=== PATIENT | male | born 1975 | race Caucasian/White ===

== ENCOUNTER 2023-03-18 14:15 | Emergency (ER) | payer SELFPAY ==
[2023-03-18 14:48] VITALS: BP 161/114; PULSE 94
[2023-03-18] MEDS: Lidocaine 1% 5 ML VIAL INJECT ONE (15:01)
[2023-03-18] MEDS: Bacitracin/Neomycin/Polymyxin B Oint 0.9 GM U/D Packet TOP ONE (15:09)
== END 2023-03-18 15:20 | disposition home or self-care (01) ==
LOC: CC.ED 14:15
DX: S61.215A Laceration without foreign body of left ring finger without damage to nail, initial encounter (principal); F17.210 Nicotine dependence, cigarettes, uncomplicated; W25.XXXA Contact with sharp glass, initial encounter
CPT/HCPCS: 12001; 73140-F3; 99283; A9270-GY; J3490

== ENCOUNTER 2024-03-24 10:03 | Emergency (ER) | payer BC ==
[2024-03-24] MEDS: Aspirin 81 MG Tab.Chew PO ONE (10:03)
[2024-03-24] MEDS ORDERED: Nitroglycerin 0.4 MG Tab.SL SL PRN (10:04)
[2024-03-24] MEDS: Nitroglycerin Lingual Spray 4.9 GM Canister TRLING PRN (10:07)
[2024-03-24] MEDS: Morphine 2 MG/ML SYRINGE IVPUSH ONE (10:23)
[2024-03-24 10:33] LABS: INR 0.98 (0.92-1.18); PROTHROMBIN TIME 10.3 SEC (9.3-11.3); PTT,PARTIAL THROMBOPLSTIN TIME 26.1 SEC (20.0-30.0)
[2024-03-24] MEDS: Morphine 2 MG/ML SYRINGE ONE (10:35)
[2024-03-24] MEDS: Heparin Sodium 5,000 Units/ML Vial IVPUSH ONE (10:43)
[2024-03-24] MEDS: Clopidogrel 75 MG Tab PO ONE (10:48)
[2024-03-24] MEDS: Heparin Sodium/0.45% NaCl 500 ML IV SCH (10:58)
[2024-03-24] MEDS ORDERED: Naloxone 2 MG/2 ML Syringe IVPUSH PRN (12:05)
[2024-03-24] MEDS: Nitroglycerin/D5W 25 MG/250 ML BOTTLE IV SCH (12:13)
[2024-03-24] MEDS: Morphine 2 MG/ML SYRINGE IVPUSH PRN (13:38)
== END 2024-03-24 12:20 ==
LOC: CC.ED 10:03
DX: I21.4 Non-ST elevation (NSTEMI) myocardial infarction (principal); F17.200 Nicotine dependence, unspecified, uncomplicated
CPT/HCPCS: 36415; 85610; 85730; 96365; 96366; 96368; 96375; 96376; 99285-25; A9270-GY; J1644; J2270; J2305

== ENCOUNTER 2024-05-21 17:28 | Emergency (ER) | payer BC ==
[2024-05-21 17:54] LABS: BASOPHILS ABSOLUTE AUTO 0.04 10^3/uL (0.00-0.50); BASOPHILS PERCENT AUTO 0.8 % (0-1); HEMOGLOBIN 15.1 g/dL (14.0-18.0); IMMATURE GRAN ABSOLUTE AUTO 0.01 10^3/uL (0.00-0.49); IMMATURE GRAN PERCENT AUTO 0.2 % (0.0-4.9); LYMPHOCYTES PERCENT AUTO 35.6 % (24-44); MEAN CORPUSCULAR HEMOGLOBIN 29.8 pg (27.0-32.0); MEAN CORPUSCULAR HGB CONC 34.3 g/dL (32.0-36.0); MONOCYTES PERCENT AUTO 7.9 % (0-10); NEUTROPHILS PERCENT AUTO 53.5 % (41-71); PLATELET COUNT,PLT 252 10^3/uL (150-400); RED BLOOD CELL COUNT 5.06 x10^6/uL (4.50-6.00); WHITE BLOOD CELL COUNT,WBC 5.1 10^3/uL (4.0-11.0)
[2024-05-21 18:01] LABS: INR 0.97 (0.92-1.18); PROTHROMBIN TIME 10.2 SEC (9.3-11.3); PTT,PARTIAL THROMBOPLSTIN TIME 25.6 SEC (20.0-30.0)
[2024-05-21 18:07] LABS: ALANINE AMINOTRANSFERASE,ALT 22 U/L (12-78); ALBUMIN 3.9 g/dL (3.4-5.0); ALKALINE PHOSPHATASE 88 U/L (46-116); ASPARTATE AMNIOTRANSFERASE,AST 13 U/L (15-37); BILIRUBIN TOTAL 0.2 mg/dL (0.0-1.0); BLOOD UREA NITROGEN,BUN 11 mg/dL (7-18); CALCIUM 9.3 mg/dL (8.4-10.1); CARBON DIOXIDE,CO2 27 mmol/L (21-32); CHLORIDE,CL 104 mEq/L (98-106); CREATININE 0.9 mg/dL (0.7-1.3); ESTIMATED GFR 107 mL/min (>=60); GLUCOSE RANDOM 160 mg/dL (75-99); LIPASE 23 U/L (16-77); MAGNESIUM 1.8 mg/dL (1.8-2.4); POTASSIUM,K 3.6 mEq/L (3.5-5.0); PROTEIN TOTAL,TP 6.9 g/dL (6.4-8.2); SODIUM,NA 139 mEq/L (136-145)
[2024-05-21 18:48] LABS: APPEARANCE,URINE CLEAR (CLEAR); BILIRUBIN,URINE NEGATIVE (NEGATIVE); COLOR,URINE YELLOW (YELLOW); GLUCOSE,URINE NEGATIVE (NEGATIVE); KETONES,URINE NEGATIVE (NEGATIVE); LEUKOCYTE ESTERASE,URINE NEGATIVE (NEGATIVE); NITRITE,URINE NEGATIVE (NEGATIVE); OCCULT BLOOD,URINE NEGATIVE (NEGATIVE); PROTEIN,URINE NEGATIVE (NEGATIVE); UROBILINOGEN,URINE 0.2 EU/dL (0.2-1.0)
== END 2024-05-21 21:55 | disposition home or self-care (01) ==
LOC: CC.ED 17:28
DX: R07.9 Chest pain, unspecified (principal); I10 Essential (primary) hypertension; I25.2 Old myocardial infarction; F17.210 Nicotine dependence, cigarettes, uncomplicated; Z79.82 Long term (current) use of aspirin; Z79.899 Other long term (current) drug therapy
CPT/HCPCS: 36415; 71046; 80053; 81003; 83690; 83735; 84484; 85025; 85610; 85730; 93005; 93010; 99284; 99285

== ENCOUNTER 2024-09-19 05:56 | Emergency (ER) | payer BC ==
[2024-09-19 06:29] LABS: BASOPHILS ABSOLUTE AUTO 0.07 10^3/uL (0.00-0.50); BASOPHILS PERCENT AUTO 1.1 % (0-1); EOSINOPHILS ABSOLUTE AUTO 0.26 10^3/uL (0.00-1.50); HEMATOCRIT 42.2 % (42.0-52.0); HEMOGLOBIN 14.3 g/dL (14.0-18.0); LYMPHOCYTES ABSOLUTE AUTO 1.98 10^3/uL (0.60-5.00); LYMPHOCYTES PERCENT AUTO 30.4 % (24-44); MEAN CORPUSCULAR HEMOGLOBIN 29.7 pg (27.0-32.0); MEAN CORPUSCULAR HGB CONC 33.9 g/dL (32.0-36.0); MEAN CORPUSCULAR VOLUME 87.7 fL (83.0-97.0); MONOCYTES ABSOLUTE AUTO 0.62 10^3/uL (0.00-1.50); MONOCYTES PERCENT AUTO 9.5 % (0-10); NEUTROPHILS ABSOLUTE AUTO 3.59 x10^3/uL (1.80-8.00); PLATELET COUNT,PLT 251 10^3/uL (150-400); RED BLOOD CELL COUNT 4.81 x10^6/uL (4.50-6.00); WHITE BLOOD CELL COUNT,WBC 6.5 10^3/uL (4.0-11.0)
[2024-09-19] MEDS: Aspirin 81 MG Tab.Chew PO ONE (06:39)
[2024-09-19 06:42] LABS: ALANINE AMINOTRANSFERASE,ALT 31 U/L (12-78); ALBUMIN 3.3 g/dL (3.4-5.0); ALKALINE PHOSPHATASE 56 U/L (46-116); ASPARTATE AMNIOTRANSFERASE,AST 17 U/L (15-37); BILIRUBIN TOTAL 0.3 mg/dL (0.0-1.0); BLOOD UREA NITROGEN,BUN 14 mg/dL (7-18); CALCIUM 8.8 mg/dL (8.4-10.1); CARBON DIOXIDE,CO2 27 mmol/L (21-32); CHLORIDE,CL 103 mEq/L (98-106); EST CRCL DRUG DOSING (CG) 95.31 mL/min; GLUCOSE RANDOM 120 mg/dL (75-99); LIPASE 106 U/L (16-77); MAGNESIUM 1.7 mg/dL (1.8-2.4); POTASSIUM,K 4.1 mEq/L (3.5-5.0); PROTEIN TOTAL,TP 6.6 g/dL (6.4-8.2); SODIUM,NA 139 mEq/L (136-145)
[2024-09-19 06:44] LABS: C-REACTIVE PROTEIN < 0.50 mg/dL (<=0.50); ESTIMATED GFR 94 mL/min (>=60)
[2024-09-19] MEDS: Nitroglycerin 0.4 MG Tab.SL SL PRN (06:44)
== END 2024-09-19 10:20 | disposition home or self-care (01) ==
LOC: CC.ED 05:56
DX: R07.89 Other chest pain (principal); I10 Essential (primary) hypertension; I25.2 Old myocardial infarction; Z88.6 Allergy status to analgesic agent; Z88.8 Allergy status to other drugs, medicaments and biological substances; Z95.5 Presence of coronary angioplasty implant and graft; Z87.891 Personal history of nicotine dependence
CPT/HCPCS: 36415; 71046; 80053; 83690; 83735; 83880; 84484; 85025; 85730; 86140; 93005; 93010; 99284; 99285; A9270-GY

== ENCOUNTER 2024-11-04 06:48 | Emergency (ER) | payer BC ==
[2024-11-04] MEDS: HYDROmorphone 1 MG/ML Syringe IVPUSH ONE (07:45)
[2024-11-04 07:47] LABS: BASOPHILS ABSOLUTE AUTO 0.04 10^3/uL (0.00-0.50); BASOPHILS PERCENT AUTO 0.4 % (0-1); EOSINOPHILS ABSOLUTE AUTO 0.06 10^3/uL (0.00-1.50); EOSINOPHILS PERCENT AUTO 0.6 % (0-6); HEMATOCRIT 41.1 % (42.0-52.0); HEMOGLOBIN 13.7 g/dL (14.0-18.0); IMMATURE GRAN ABSOLUTE AUTO 0.01 10^3/uL (0.00-0.49); IMMATURE GRAN PERCENT AUTO 0.1 % (0.0-4.9); LYMPHOCYTES ABSOLUTE AUTO 1.35 10^3/uL (0.60-5.00); LYMPHOCYTES PERCENT AUTO 13.2 % (24-44); MEAN CORPUSCULAR HEMOGLOBIN 29.1 pg (27.0-32.0); MEAN CORPUSCULAR HGB CONC 33.3 g/dL (32.0-36.0); MEAN CORPUSCULAR VOLUME 87.3 fL (83.0-97.0); MONOCYTES ABSOLUTE AUTO 1.01 10^3/uL (0.00-1.50); MONOCYTES PERCENT AUTO 9.9 % (0-10); NEUTROPHILS ABSOLUTE AUTO 7.78 x10^3/uL (1.80-8.00); NEUTROPHILS PERCENT AUTO 75.8 % (41-71); PLATELET COUNT,PLT 195 10^3/uL (150-400); RED BLOOD CELL COUNT 4.71 x10^6/uL (4.50-6.00); WHITE BLOOD CELL COUNT,WBC 10.3 10^3/uL (4.0-11.0)
[2024-11-04 08:09] LABS: ALBUMIN 3.4 g/dL (3.4-5.0); BILIRUBIN TOTAL 0.4 mg/dL (0.0-1.0); CALCIUM 8.5 mg/dL (8.4-10.1); CREATININE 0.9 mg/dL (0.7-1.3); EST CRCL DRUG DOSING (CG) 102.56 mL/min; MAGNESIUM 1.6 mg/dL (1.8-2.4); PROTEIN TOTAL,TP 6.4 g/dL (6.4-8.2)
[2024-11-04] MEDS: Iopamidol 755 Mg/ML 100 ML Bottle IVPUSH ONE (08:41)
[2024-11-04] MEDS: Orphenadrine 60 MG/2 ML Inj IV ONE (11:03)
== END 2024-11-04 10:45 | disposition home or self-care (01) ==
LOC: CC.ED 06:48
DX: G89.18 Other acute postprocedural pain (principal); R10.13 Epigastric pain; R07.9 Chest pain, unspecified; I25.2 Old myocardial infarction; I10 Essential (primary) hypertension; Z79.82 Long term (current) use of aspirin; Z79.899 Other long term (current) drug therapy
CPT/HCPCS: 36415; 71045; 71260; 74177; 80053; 83690; 83735; 84484; 85025; 93005; 96374; 96375; 99285-25; J1171; J2360; Q9967